=== PATIENT | female | born 1980 | race Caucasian/White ===

== ENCOUNTER → 2016-06-08 | Outpatient (CLI) | payer OTHER ==
--- NOTE | ~2016-06-08 | MR113 ---
[facility] A Service of [facility] / [facility] RADIOLOGY TEXT RESULTS PATIENT: LOCATION: [facility] : 78 UNIT #: [id number] AGE: [address]: NIEVES MAN SEX: F ORDER DR: [id number] [place] [id number] O MR#: [id number] Acc #: [id number] NAME: ELENDecember : 1980 SEX: F STUDY DATE/TIME: 06/08/2016 14:42 UNIT: [facility] ROOM: STUDY DESCRIPTION: MR Lumbar Wo Contrast Attending Physician: Nieves Man Referring Physician: Nieves Man Ordering Physician: Physician Non-Staff Primary Care Physician: Primary Care Physician No MRI CENTER REPORT This report is preliminary unless electronic signature is present. EXAM MRI of the lumbar spine without contrast dated 06/08/2016. COMPARISON Plain films lumbar spine dated 09/15/2015. HISTORY Increasing low back pain for the last 6-8 months. Right lower extremity numbness x 3-4 days. FINDINGS Multisequence multiplanar imaging of the lumbar spine was obtained without contrast. Vertebral body heights and alignment are preserved. Degenerative disc disease is at multiple levels. Pre and paravertebral soft tissues do not demonstrate any significant abnormality. L1-2: Mild bilateral facet changes, mild disc bulge. No neural foraminal narrowing. L2-3: Concentric disc bulge with mild bilateral facet changes. Mild inferior bilateral neural foraminal encroachment. L3-4: Concentric disc bulge with superimposed right foraminal moderate protrusion/extrusion which extends to the right subarticular region. There is impingement of the exiting right L3 nerve root with moderate right neural foraminal narrowing. There is a extruded component in the right subarticular region with superior migration of 1.8 cm. It measures 0.9 x 1.2 cm in axial dimension. Mild right lateral recess encroachment is seen. L4-5: Concentric disc bulge with superimposed small central protrusion. [facility] A Service of [facility] / [facility] RADIOLOGY TEXT RESULTS PATIENT: LOCATION: [facility] : 78 UNIT #: [id number] AGE: [address]: NIEVES MAN SEX: F ORDER DR: Mild bilateral facet changes are noted without any significant canal stenosis. Mild inferior bilateral neural foraminal encroachment is seen particularly in the left with a suspicious small left foraminal protrusion too. L5-S1: Concentric disc bulge with superimposed left subarticular to foraminal moderate protrusion/extrusion with moderate left neural foraminal narrowing and [id number] left lateral recess stenosis. Mild bilateral facet changes. IMPRESSION 1. Degenerative changes are noted at multiple levels, worse at L3-4 followed by 5- S1 and L4-5. 2. There is a right subarticular to right foraminal moderate broad-based protrusion with a small suspicious extrusion in the right foraminal region and a larger extrusion with superior migration of 1.8 cm in the right subarticular region of L3-4. Correlate with right L3 and L4 radiculopathy. 3. Left subarticular to foraminal moderate protrusion/extrusion at L5-S1. It appears to impinge upon the exiting left L5 and touches the left S1 nerve root. Dictated by... Frances Villalobos M.D. THIS IS AN ELECTRONICALLY VERIFIED REPORT Frances Villalobos M.D. at 06/12/2016 11:14 AM CPR/jody TD: 06/11/2016 11:25 JOB #: [id number] MRI CENTER REPORT Page 1 of 1
== END | disposition home or self-care (01) ==
LOC: SMRI 14:18
DX: M54.5 Low back pain (principal); M41.9 Scoliosis, unspecified; M51.36 Other intervertebral disc degeneration, lumbar region; R20.9 Unspecified disturbances of skin sensation; M51.26 Other intervertebral disc displacement, lumbar region; M51.27 Other intervertebral disc displacement, lumbosacral region; M47.816 Spondylosis without myelopathy or radiculopathy, lumbar region; M47.817 Spondylosis without myelopathy or radiculopathy, lumbosacral region
CPT/HCPCS: 72148